=== PATIENT | male | born 1960 | race Caucasian/White ===

== ENCOUNTER 2025-04-29 11:59 | Emergency (ER) | payer BC, SELFPAY ==
[2025-04-29 12:10] VITALS: BP 136/94
[2025-04-29 12:33] LABS: Hematocrit 37.6 % (39.0-52.0); Hemoglobin 13.4 g/dL (13.0-18.0); Mean Corp Hgb Conc. 35.6 g/dL (33.0-37.0); Mean Corpuscular Volume 90.2 fL (80.0-94.0); Nucleated Red Blood Cells % 0 % (-); Platelet Count 221 10^3/uL (130-400); Red Cell Dist. Width 12.1 % (11.5-14.5)
[2025-04-29 12:34] LABS: Urine Character Clear (Clear)
[2025-04-29 12:47] LABS: Urine Red Blood Cell 0-2 /HPF (0-2); Urine Squamous Cell 0-2 /LPF (Few)
[2025-04-29 12:48] LABS: ALT (SGPT) 58 U/L (0-50); AST (SGOT) 52 U/L (17-59); Albumin 4.6 g/dl (3.5-5.0); Alkaline Phosphatase 77 U/L (38-126); Blood Urea Nitrogen 20 mg/dl (9-20); Calcium 9.9 mg/dl (8.4-10.2); Carbon Dioxide 25 mmol/L (22-30); Chloride 107 mmol/L (98-107); Glucose 96 mg/dl (70-99); Lipase 288 U/L (23-300); Potassium 4.8 mmol/L (3.5-5.1); Sodium 138 mmol/L (135-145); Total Protein 7.1 g/dl (6.3-8.2); eGFR > 60.00
--- NOTE | 2025-04-29 14:45 | ED.GENMED ---
History of Present Illness
General
Chief Complaint: Abdominal Symptoms
Source: patient
Exam Limitations: none
Time Seen by Provider: 04/29/25 14:16
History of Present Illness
History of Present Illness:
Note:
CHIEF COMPLAINT(S)
Persistent nausea, vomiting, and diarrhea for five days.
HISTORY OF PRESENT ILLNESS
The patient is a 64-year-old male who presented with a five-day history of gastrointestinal symptoms, including nausea, vomiting, and diarrhea. These symptoms began suddenly last Tuesday night. The patient reports that he was unable to attend work
on and Tuesday due to the severity of his symptoms. He felt somewhat better yesterday but noted a recurrence of symptoms this morning. There was no presence of blood in the stool or vomit and no recent antibiotic use or travel. The patient
lives with friends and family, none of whom have shown similar symptoms, including grandchildren. Although his appetite decreased initially, he reports that hunger is improving, as evidenced by his ability to tolerate two protein shakes earlier
today. The patient did not experience any severe exacerbation but sought medical evaluation at the urging of urgent care due to persistent symptoms. Currently, the patient feels better than the initial presentation but notes a pressure sensation in
the pelvic area.
PAST MEDICAL AND SURGICAL HISTORY
- Percutaneous coronary intervention (stents) in 2020 for heart disease.
CHRONIC MEDICAL CONDITIONS SIGNIFICANTLY AFFECTING CARE
- Type 2 Diabetes Mellitus
SOCIAL DETERMINANTS AFFECTING HEALTH
The patient�s environment includes living with friends and family.
REVIEW OF SYSTEMS
- Gastrointestinal: Nausea, vomiting, diarrhea, no blood in the stool or vomit.
- General: Decreased appetite with recent improvement.
PHYSICAL EXAM
General: Alert, no acute distress.
Skin: Warm, dry.
Head: Normocephalic, atraumatic.
Neck: Supple, trachea midline.
Eyes, ears, nose, mouth, and throat: Oral mucosa moist.
Cardiovascular: Normal peripheral perfusion, no edema.
Respiratory: Respirations are non-labored.
Gastrointestinal: Abdomen is non-distended with minimal diffuse tenderness, no focal tenderness, normal bowel sounds.
Back: Normal range of motion, normal alignment.
Musculoskeletal: Normal range of motion, normal strength.
Neurological: Alert and oriented to person, place, time, and situation. No focal neurological deficit observed.
Psychiatric: Cooperative, appropriate mood and affect.
PROBLEM LIST
Acute:
- Gastroenteritis with nausea, vomiting, and diarrhea.
Chronic:
- Coronary artery disease with prior stent placement.
- Type 2 Diabetes Mellitus.
PLAN
1. Symptomatic management with continued hydration and monitoring of symptoms.
2. The patient is advised to maintain adequate fluid intake and to return if symptoms worsen or new symptoms develop.
3. Reassurance regarding the self-limiting nature of most viral or bacterial gastrointestinal infections.
4. Follow-up for reassessment if symptoms persist beyond a week to two weeks.
DIFFERENTIAL DIAGNOSIS
The Differential Diagnosis includes, in no particular order and is not limited to:
1. Viral gastroenteritis
2. Bacterial gastroenteritis
3. Foodborne illness
4. Irritable bowel syndrome
5. Medication side effects
6. Inflammatory bowel disease
7. Malabsorption syndrome
8. Peptic ulcer disease
9. Diverticulitis
10. Gastrointestinal motility disorder.
Disposition:
SUMMARY OF ENCOUNTER
The patient, a 64-year-old male, was seen in the emergency department due to persistent gastrointestinal symptoms, including nausea, vomiting, and diarrhea, lasting for five days. Symptoms were severe enough to cause the patient to miss work but
have seen a slight improvement as hunger returned, evidenced by his ability to consume two protein shakes today. Laboratory tests, including a complete blood count (CBC), comprehensive metabolic panel (CMP), and urinalysis, were reviewed and
interpreted by me. The CBC showed normal white blood cell count and hemoglobin with no left shift, which suggests the body is not fighting a bacterial infection. The CMP was normal, and urinalysis did not indicate any gross infection or hematuria.
Through examination and lab results, the symptoms are suspected to be of an infectious nature, likely viral, not warranting antibiotic treatment.
ASSESSMENT
The patients symptoms and lab results suggest an acute episode of gastroenteritis of likely a viral etiology, as there was no laboratory evidence of bacterial infection. The absence of left shift reinforces this viral suspicion.
PLAN
The patient was advised to manage symptoms conservatively with adequate hydration and a slow progression in diet. He was encouraged to increase fluid intake at home and to monitor symptoms closely. An outpatient follow-up was recommended to reassess
symptoms and ensure resolution.
FOLLOW-UP INSTRUCTIONS
Return to the emergency department or see a primary care provider if symptoms worsen, or if focal bowel changes occur. Scheduled outpatient follow-up for reassessment as planned.
MEDICAL DECISION MAKING
1. Number and Complexity of Problems Addressed: Chronic conditions affecting care include type 2 diabetes mellitus and coronary artery disease. Differential Diagnosis includes viral gastroenteritis, bacterial gastroenteritis, foodborne illness,
irritable bowel syndrome, medication side effects, inflammatory bowel disease, malabsorption syndrome, peptic ulcer disease, diverticulitis, and gastrointestinal motility disorder.
2. Data:
- Category 1: Labs reviewed include normal CBC with no left shift, normal CMP, urinalysis showing no gross infection, and all were independently interpreted as indicative of a viral process.
- Category 2: Not applicable.
- Category 3: Not applicable.
3. Risk: The condition is likely self-limiting. The patient is safe for outpatient management with close follow-up as work-up did not reveal any acute life/organ-threatening processes. Symptoms are well controlled upon reevaluation; the patient is
agreeable with discharge and is reliable for follow-up given the stable vitals and reassuring examination. Consideration of Admission/Observation was made but is deemed not necessary due to findings.
DIAGNOSIS
- Infectious gastroenteritis (likely viral), ICD-10: A09
Past History
Past History
ED Past Medical History: CAD, HTN, Hypercholesterolemia, NIDDM and Other; Negative Cancer
Social History
Tobacco: Non-smoker
Personal:
Living: with family
Employment: Employed
Phy Exam
Physical Exam
Physical Exam:
.
Course
Orders/Labs/Results
Orders:
Orders
04/29/25 12:26
Complete Blood Count/With Diff Urgent
Comprehensive Metabolic Panel Urgent
Lipase Urgent
Urinalysis Reflex To Culture Urgent
Date Specimen was Collected: 04/29/25
Time Specimen was Collected: 12:15
Urine Microscopic Reflex Cult Urgent
Urine Culture Urgent
RODO Source: U
Specimen Description:
Date Specimen was Collected: 04/29/25
Time Specimen was Collected: 12:15
Abnormal Lab Results
04/29/25
12:26
RBC 4.17 L 10^6/uL
(4.70-6.10)
Hct 37.6 L %
(39.0-52.0)
MCH 32.1 H pg
(27.0-31.0)
Absolute Monos (auto) 0.7 H 10^3/uL
(0.1-0.6)
Immature Gran % 0.6 H %
(0-0.5)
Lymphocytes % 17.0 L %
(20.5-51.1)
Monocytes % 10.3 H %
(1.7-9.3)
ALT 58 H U/L
(0-50)
Leukocyte Esterase Rfl 3+ A
(Negative)
Urine Bacteria (Reflex) Few A
(Negative)
Urine Albumin (Reflex) 1+ A
(Neg - Trace)
04/29/25 12:26
04/29/25 12:26
Vital Signs
Initial and Last Documented VS:
Initial Vital Signs
Temp Pulse Resp BP Pulse Ox
98.7 F 72 16 136/94 100
04/29/25 12:10 04/29/25 12:10 04/29/25 12:10 04/29/25 12:10 04/29/25 12:10
Last Documented Vital Signs
Temp Pulse Resp BP Pulse Ox
98.7 F 72 16 136/94 100
04/29/25 12:10 04/29/25 12:10 04/29/25 12:12 04/29/25 12:10 04/29/25 12:10
*Pulse Oximetry
SaO2: 100
Oxygen Mode of Delivery: Room air
Patient hypoxic: no
*Critical Care Note
Total Time (30-74mins, 75-104mins- exclusive of procedures): Not Applicable
ED Attending Note
-
Portions of this chart may have been created with voice recognition software.� Occasional wrong word or��sound alike� substitutions may have occurred due to the inherent limitations of voice recognition software.
Discharge Plan
Departure
Patient Disposition: Home (Routine Discharge)
Date of Disposition: 04/29/25
Time of Disposition: 14:46
Patient with high blood pressure during this ER visit?: Yes
Discharge Problem:
Vomiting, Diarrhea
Instructions: Diarrhea in teens and adults, Nausea and Vomiting, Adult (DC), BLOOD PRESSURE
Prescriptions:
No Action
atorvastatin 40 MG tablet
80 mg PO DAILY
tramadol 50 MG tablet
50 mg PO BID
aspirin [Slava Chewable Aspirin] 81 MG tablet,chewable
81 mg PO BID
lisinopril 2.5 MG tablet
2.5 mg PO DAILY
docosahexaenoic acid-epa 1 CAP capsule
1 cap PO BID
turmeric root extract 500 MG capsule
650 mg PO BID
cholecalciferol (vitamin D3) 2,000 UNIT tablet,chewable
2,000 unit PO BID
isosorbide mononitrate 30 MG tablet extended release 24 hr
30 mg PO DAILY Qty: 30 10RF
metformin 500 MG tablet
500 mg PO BID Qty: 0 0RF
Rx Instructions:
Hold post procedure, resume on Th evening
carvedilol 12.5 MG tablet
6.25 mg PO BID
prednisone 20 MG tablet
20 mg PO TID Qty: 21 0RF
Referrals:
Jacobo Boyle, [Family Provider, Internal Medicine]
Activity Restrictions/Additional Instructions:
Please drink plenty fluids and advance diet slowly as discussed. Return immediately for focal abdominal pain, worsening symptoms, fevers, blood in stool, blood in vomit or any other concerns. If diarrhea persists, you may trial a dose or 2 doses
of Imodium.
Discharge Date and Time
Print Language: YI
== END 2025-04-29 15:03 | disposition home or self-care (01) ==
LOC: EMR 11:59
PROVIDERS: Emergency Medicine; EMERGENCY PHYSICIAN Emergency Medicine; FAMILY PHYSICIAN Internal Medicine
DX: R11.10 Vomiting, unspecified (principal); R19.7 Diarrhea, unspecified; E11.9 Type 2 diabetes mellitus without complications; I25.10 Atherosclerotic heart disease of native coronary artery without angina pectoris; I10 Essential (primary) hypertension; E78.00 Pure hypercholesterolemia, unspecified; Z79.82 Long term (current) use of aspirin; Z79.84 Long term (current) use of oral hypoglycemic drugs; Z95.5 Presence of coronary angioplasty implant and graft
CPT/HCPCS: 99283; 80053; 81003; 81015; 83690; 85025; 87086

== ENCOUNTER → 2025-06-23 09:12 | Outpatient (REF) | payer BC, SELFPAY | LOC: MRI 09:12 | PROVIDERS: ATTENDING PHYSICIAN Internal Medicine | DX: R46.89 Other symptoms and signs involving appearance and behavior (principal) | CPT/HCPCS: 70551 ==